=== PATIENT | female | born 1990 | race Caucasian/White ===

== ENCOUNTER 2017-06-23 09:07 | Emergency (ER) | payer OTHER ==
[~2017-06-23] VITALS: Ht 157.5 cm; Wt 55.5 kg
[~2017-06-23 09:07] MED LIST: FERRAPLUS 90 PO; IRON; IRON325 M1 PO; PNV PO; PRE-NATAL PO; PRENATAL 11 PO
[2017-06-23 09:41] LABS: URINE BILIRUBIN - DIPSTICK NEGATIVE (NEGATIVE); URINE BLOOD DIPSTICK NEGATIVE (NEGATIVE); URINE COLOR YELLOW; URINE GLUCOSE - DIPSTICK NEGATIVE (NEGATIVE); URINE KETONE NEGATIVE (NEGATIVE); URINE LEUK ESTERASE NEGATIVE (NEGATIVE); URINE NITRITE - DIPSTICK NEGATIVE (Negative); URINE PH 6.5 (4.5-8.0); URINE SPECIFIC GRAVITY 1.025; URINE UROBILINOGEN - DIPSTICK 0.2 E.U./dL (0.2)
[2017-06-23 09:42] LABS: IMMATURE GRANULOCYTES 0.2 % (0.0-1.0); MEAN CORPUSCULAR HGB 28.2 pG CALC (26.0-32.0); NEUT# 4.6 thou/uL (2.00-7.15); RED BLOOD COUNT 4.61 mill/uL (4.20-5.60); RED CELL DISTRI WIDTH 17.1 % (11.5-15.5)
[2017-06-23 09:51] LABS: HEMATOCRIT 39.4 % (37.0-47.0); MEAN CELL VOLUME 85.5 fL CALC (80.0-100.0)
[2017-06-23 09:59] LABS: URINE CLARITY CLEAR
[2017-06-23 10:00] LABS: ALBUMIN 4.3 g/dL (3.2-5.0); ANION GAP 16 (6-22 (CALC)); BILIRUBIN, TOTAL 0.4 mg/dL (0.0-1.4); BUN 19 mg/dL (7-17); BUN/CREATININE RATIO 24 (12-20 (CALC)); CARBON DIOXIDE 23 mmol/l (22-30); CHLORIDE 109 mmol/l (95-108); CREATININE 0.8 mg/dL (0.5-1.0); GFR > 60 ML/MIN (>=60 (CALC)); GFR FOR AFR.AMER. > 60 ML/MIN (>=60 (CALC)); POTASSIUM 4.2 mmol/l (3.5-5.1); SGOT/AST 19 u/l (14-36); SGPT/ALT 24 u/l (9-52); SODIUM 144 mmol/l (137-146); TOTAL PROTEIN 6.6 g/dL (6.3-8.2); URINE PROTEIN - DIPSTICK Trace mg/dL (NEG-TRACE)
[2017-06-23 10:08] LABS: ALKALINE PHOSPHATASE 84 u/l (38-126)
[2017-06-23 11:11] VITALS: BP 109/77
== END 2017-06-23 11:20 | disposition home or self-care (01) | DRG 761 ==
LOC: ED 09:07
PROVIDERS: Emergency Medicine
DX: N93.8 Other specified abnormal uterine and vaginal bleeding (principal)

== ENCOUNTER 2017-12-10 16:15 | Emergency (ER) | payer OTHER ==
[~2017-12-10] VITALS: Ht 157.5 cm; Wt 51.4 kg
[2017-12-10] MEDS ORDERED: BIOTIN MAXI10000 MC1 PO (16:34)
[2017-12-10] MEDS ORDERED: B-12500 MC2 PO (16:35)
[2017-12-10] MEDS ORDERED: AMOXICILLIN875 MG PO (16:46)
[2017-12-10 16:53] VITALS: BP 117/78
== END 2017-12-10 16:58 | disposition home or self-care (01) ==
LOC: ED 16:15
DX: H66.92 Otitis media, unspecified, left ear (principal); J02.9 Acute pharyngitis, unspecified; R50.9 Fever, unspecified; F17.210 Nicotine dependence, cigarettes, uncomplicated; H92.02 Otalgia, left ear

== ENCOUNTER 2019-01-18 14:14 | Emergency (ER) | payer MEDICAID ==
[~2019-01-18] VITALS: Ht 157.5 cm; Wt 52.0 kg
[~2019-01-18 14:14] MED LIST changes: +AMOXICILLIN875 MG PO; +B-12500 MC2 PO; +BIOTIN MAXI10000 MC1 PO
[2019-01-18 15:33] VITALS: BP 116/74
== END 2019-01-18 15:52 | disposition home or self-care (01) ==
LOC: ED 14:14
DX: J03.90 Acute tonsillitis, unspecified (principal); F17.210 Nicotine dependence, cigarettes, uncomplicated
CPT/HCPCS: J0561

== ENCOUNTER 2020-01-16 18:41 | Emergency (ER) | payer MEDICAID ==
[~2020-01-16] VITALS: Ht 157.5 cm; Wt 53.0 kg
[2020-01-16 19:43] LABS: URINE BILIRUBIN - DIPSTICK NEGATIVE (NEGATIVE); URINE BLOOD DIPSTICK SMALL (NEGATIVE); URINE COLOR ORANGE; URINE GLUCOSE - DIPSTICK 100 mg/dL (NEGATIVE); URINE KETONE TRACE mg/dL (NEGATIVE); URINE LEUK ESTERASE NEGATIVE (NEGATIVE); URINE PH 6.5 (4.5-8.0); URINE PROTEIN - DIPSTICK 100 mg/dL (NEG-TRACE); URINE SPECIFIC GRAVITY 1.025
[2020-01-16 19:45] LABS: URINE NITRITE - DIPSTICK POSITIVE (Negative)
[2020-01-16 19:54] LABS: URINE BACTERIA RARE hpf; URINE SQUAMOUS EPITHELIAL CELL FEW EPI/hpf (0-FEW)
[2020-01-16] MEDS ORDERED: BACTRIM DS1 TAB PO (19:59)
[2020-01-16 20:18] VITALS: BP 114/80
== END 2020-01-16 20:18 | disposition home or self-care (01) ==
LOC: ED 18:41
DX: N39.0 Urinary tract infection, site not specified (principal); F17.200 Nicotine dependence, unspecified, uncomplicated; Z87.440 Personal history of urinary (tract) infections

== ENCOUNTER 2020-07-11 18:38 | Emergency (ER) | payer MEDICAID ==
[~2020-07-11] VITALS: Ht 157.5 cm; Wt 54.0 kg
[~2020-07-11 18:38] MED LIST changes: +BACTRIM DS1 TAB PO
[2020-07-11] MEDS ORDERED: LAMICTAL200 M1 PO (19:03)
[2020-07-11] MEDS ORDERED: TRAMADOL HYDROC50 MG PO (21:27)
[2020-07-11] MEDS ORDERED: PREDNISONE50 MG PO (21:27)
[2020-07-11 21:31] VITALS: BP 128/72
== END 2020-07-11 21:38 | disposition home or self-care (01) ==
LOC: ED 18:38
DX: M54.12 Radiculopathy, cervical region (principal); M77.8 Other enthesopathies, not elsewhere classified; F31.9 Bipolar disorder, unspecified; F17.210 Nicotine dependence, cigarettes, uncomplicated

== ENCOUNTER 2020-10-19 22:34 | Emergency (ER) | payer MEDICAID ==
[~2020-10-19] VITALS: Ht 157.5 cm; Wt 55.0 kg
[~2020-10-19 22:34] MED LIST changes: +LAMICTAL200 M1 PO; +PREDNISONE50 MG PO; +TRAMADOL HYDROC50 MG PO
[2020-10-19 23:14] LABS: URINE BILIRUBIN - DIPSTICK NEGATIVE (NEGATIVE); URINE BLOOD DIPSTICK TRACE-LYSED (NEGATIVE); URINE COLOR ORANGE; URINE GLUCOSE - DIPSTICK 100 mg/dL (NEGATIVE); URINE KETONE NEGATIVE (NEGATIVE); URINE LEUK ESTERASE NEGATIVE (NEGATIVE); URINE PH 6.5 (4.5-8.0); URINE PROTEIN - DIPSTICK 30 mg/dL (NEG-TRACE); URINE UROBILINOGEN - DIPSTICK >=8.0 E.U./dL (0.2)
[2020-10-19 23:15] LABS: URINE NITRITE - DIPSTICK POSITIVE (Negative)
[2020-10-19 23:23] LABS: URINE BACTERIA FEW hpf; URINE SQUAMOUS EPITHELIAL CELL FEW EPI/hpf (0-FEW)
[2020-10-19 23:30] VITALS: BP 128/78
[2020-10-19] MEDS ORDERED: BACTRIM DS1 TAB PO (23:30)
== END 2020-10-19 23:39 | disposition home or self-care (01) ==
LOC: ED 22:34
PROVIDERS: Family Medicine
DX: N39.0 Urinary tract infection, site not specified (principal); B95.7 Other staphylococcus as the cause of diseases classified elsewhere; F31.9 Bipolar disorder, unspecified

== ENCOUNTER 2020-10-23 14:38 | Emergency (ER) | payer MEDICAID ==
[~2020-10-23] VITALS: Ht 157.5 cm; Wt 57.8 kg
[2020-10-23] MEDS ORDERED: ATIVAN1 MG PO (15:13)
[2020-10-23 15:57] LABS: HEMATOCRIT 40.6 % (37.0-47.0); HEMOGLOBIN 12.9 g/dl (12.0-16.0); IMMATURE GRANULOCYTES 0.3 % (0.0-5.0); MEAN CORPUSCULAR HGB 29.8 pG CALC (26.0-32.0); MEAN CORPUSCULAR HGB CONC 31.8 g/dL CAL (32.0-36.0); NEUT# 3.59 thou/uL (2.00-7.15); RED BLOOD COUNT 4.33 mill/uL (4.20-5.60); RED CELL DISTRI WIDTH 12.9 % (11.5-15.5)
[2020-10-23 15:58] LABS: URINE BILIRUBIN - DIPSTICK NEGATIVE (NEGATIVE); URINE BLOOD DIPSTICK SMALL (NEGATIVE); URINE GLUCOSE - DIPSTICK 100 mg/dL (NEGATIVE); URINE KETONE NEGATIVE (NEGATIVE); URINE LEUK ESTERASE NEGATIVE (NEGATIVE); URINE PROTEIN - DIPSTICK NEGATIVE (NEG-TRACE)
[2020-10-23 16:00] LABS: URINE NITRITE - DIPSTICK POSITIVE (Negative)
[2020-10-23 16:01] LABS: URINE COLOR ORANGE
[2020-10-23 16:03] LABS: MEAN CELL VOLUME 93.8 fL CALC (80.0-100.0)
[2020-10-23 16:11] LABS: URINE SQUAMOUS EPITHELIAL CELL FEW EPI/hpf (0-FEW)
[2020-10-23 16:13] LABS: ALBUMIN 4.6 g/dL (3.2-5.0); ALKALINE PHOSPHATASE 52 u/l (38-126); ANION GAP 14 (6-22 (CALC)); BILIRUBIN, TOTAL 0.4 mg/dL (0.0-1.4); BUN 13 mg/dL (7-17); BUN/CREATININE RATIO 11 (12-20 (CALC)); CARBON DIOXIDE 27 mmol/l (22-30); CHLORIDE 101 mmol/l (95-108); CREATININE 1.2 mg/dL (0.5-1.0); GFR 52 ML/MIN (>=60 (CALC)); GFR FOR AFR.AMER. > 60 ML/MIN (>=60 (CALC)); LIPASE 135 u/l (23-300); POTASSIUM 4.4 mmol/l (3.5-5.1); SGOT/AST 22 u/l (14-36); SODIUM 137 mmol/l (137-146); TOTAL PROTEIN 7.3 g/dL (6.3-8.2)
[2020-10-23] MEDS ORDERED: OMNI-PAC300 MG PO (18:03)
[2020-10-23 18:17] VITALS: BP 112/70
== END 2020-10-23 18:25 | disposition home or self-care (01) ==
LOC: ED 14:38
PROVIDERS: Family Medicine
DX: N39.0 Urinary tract infection, site not specified (principal); N20.0 Calculus of kidney; F31.9 Bipolar disorder, unspecified; B95.8 Unspecified staphylococcus as the cause of diseases classified elsewhere; Z87.440 Personal history of urinary (tract) infections

== ENCOUNTER 2021-05-10 11:21 | Emergency (ER) | payer MEDICAID ==
[~2021-05-10] VITALS: Ht 157.5 cm; Wt 62.8 kg
[~2021-05-10 11:21] MED LIST changes: +ATIVAN1 MG PO; +OMNI-PAC300 MG PO
[2021-05-10 13:04] VITALS: BP 121/57
== END 2021-05-10 13:04 | disposition home or self-care (01) ==
LOC: ED 11:21
DX: U07.1 COVID-19 (principal); F31.9 Bipolar disorder, unspecified; Z87.440 Personal history of urinary (tract) infections

== ENCOUNTER 2024-01-31 09:18 | Emergency (ER) | payer OTHER ==
[~2024-01-31] VITALS: Ht 157.5 cm; Wt 68.0 kg
[2024-01-31] VITALS (11 sets, daily range): BP systolic 91–109; BP diastolic 59–79
[2024-01-31 09:37] LABS: URINE BILIRUBIN - DIPSTICK Negative (NEGATIVE); URINE BLOOD DIPSTICK Moderate (NEGATIVE); URINE GLUCOSE - DIPSTICK Negative (NEGATIVE); URINE KETONE Negative (NEGATIVE); URINE LEUK ESTERASE Negative (NEGATIVE); URINE NITRITE - DIPSTICK Negative (Negative); URINE PROTEIN - DIPSTICK 30 mg/dL (NEG-TRACE); URINE SPECIFIC GRAVITY >=1.030; URINE UROBILINOGEN - DIPSTICK 0.2 E.U./dL (0.2)
[2024-01-31 09:39] LABS: BASO% 0.4 % (0-3); EOS% 0.9 % (0-8); HEMATOCRIT 41.5 % (37.0-47.0); HEMOGLOBIN 13.4 g/dl (12.0-16.0); IMMATURE GRANULOCYTES 0.2 % (0.0-5.0); MEAN CELL VOLUME 92.6 fL CALC (80.0-100.0); MEAN CORPUSCULAR HGB 29.9 pG CALC (26.0-32.0); MEAN CORPUSCULAR HGB CONC 32.3 g/dL CAL (32.0-36.0); MONO% 13.3 % (2-13); NEUT# 2.25 thou/uL (2.00-7.15); NEUT% 49.2 % (42-76); RED BLOOD COUNT 4.48 mill/uL (4.20-5.60); RED CELL DISTRI WIDTH 12.5 % (11.5-15.5)
[2024-01-31 09:40] LABS: URINE COLOR Yellow
[2024-01-31 09:48] LABS: URINE WBC 0-2 WBC/hpf (0-5)
[2024-01-31 09:49] LABS: ALBUMIN 4.8 g/dL (3.2-5.0); ALKALINE PHOSPHATASE 58 u/l (38-126); ANION GAP 8 (6-22 (CALC)); BILIRUBIN, TOTAL 0.4 mg/dL (0.02-1.3); BUN 21 mg/dL (7-17); BUN/CREATININE RATIO 24 (12-20 (CALC)); CARBON DIOXIDE 29 mmol/l (22-30); CHLORIDE 106 mmol/l (95-108); CREATININE 0.9 mg/dL (0.5-1.0); ESTIMATED GFR 86 ML/MIN (>=90 (CALC)); POTASSIUM 3.6 mmol/l (3.5-5.1); SGOT/AST 29 u/l (14-36); SODIUM 140 mmol/l (137-146); TOTAL PROTEIN 7.5 g/dL (6.3-8.2); URINE MUCUS FEW hpf (NONE-FEW)
[2024-01-31] MEDS ORDERED: SODIUM CHLORIDE 0.9% 1,000 ML IV ONE ×2 (10:05)
== END 2024-01-31 12:38 | disposition home or self-care (01) ==
LOC: ED 09:18
PROVIDERS: Family Medicine
DX: R42 Dizziness and giddiness (principal); R55 Syncope and collapse; F31.9 Bipolar disorder, unspecified; Z87.440 Personal history of urinary (tract) infections